=== PATIENT | female | born 1985 | race Caucasian/White ===

== ENCOUNTER 2016-06-15 02:05 | Inpatient (IN) | payer OTHER ==
[2016-06-15] VITALS (16 sets, daily range): BP systolic 109–136; BP diastolic 57–86
[~2016-06-15] VITALS: Ht 152.4 cm; Wt 58.6 kg
[~2016-06-15 02:05] MED LIST: AZELASTINE137 MCG/0.; AZITHROMYCIN250 MG; FLUTICASONE PRO16 GM; PROMETHAZINE HC25 M1 PO; ROBITUSSIN AC,T10 ML PO; ZITHROMAX Z-PA250 MG PO; ZOFRAN4 MG PO
[2016-06-15 03:28] LABS: HEMATOCRIT 33.1 % (36.0-46.0); MCH 31.8 PG (29.0-34.0); MCHC 34.1 G/DL (30.0-36.0); MCV 93.2 FL (83-99); MEAN PLAT.VOLUME 9.2 uM^3 (9.5-12.4); PLATELET COUNT 237 K/uL (156-360); RBC DIS.WIDTH-CV 13.4 % (11.8-14.6); RBC DIS.WIDTH-SD 43.9 % (39-53); RED BLOOD COUNT 3.55 M/uL (3.80-5.20); WHITE BLOOD COUNT 14.2 K/uL (4.1-10.2)
[2016-06-15 03:36] LABS: BASOPHIL COUNT 0.1 K/uL (0-0.1); EOSINOPHIL (%) 0.8 % (0-5); EOSINOPHIL COUNT 0.1 K/uL (0-0.3); IMMATURE GRANULOCYTE (%) 0.3 % (0.0-0.7); IMMATURE GRANULOCYTE COUNT 0.4 K/uL; LYMPHOCYTE COUNT 3.1 K/uL (1.0-2.8); MONOCYTE (%) 8.8 % (3-12); MONOCYTE COUNT 1.3 K/uL (0-0.8); NEUTROPHIL (%) 67.6 % (45-76); NEUTROPHIL COUNT 9.6 K/uL (1.8-6.4)
[2016-06-15] MEDS ORDERED: IRON325 M1 PO (05:14)
[2016-06-16 07:15] VITALS: BP 111/67
[2016-06-16 07:23] LABS: HEMATOCRIT 28.1 % (36.0-46.0); MCHC 33.8 G/DL (30.0-36.0); MCV 94.6 FL (83-99); MEAN PLAT.VOLUME 9.6 uM^3 (9.5-12.4); PLATELET COUNT 188 K/uL (156-360); RBC DIS.WIDTH-CV 13.7 % (11.8-14.6); RBC DIS.WIDTH-SD 47.4 % (39-53); RED BLOOD COUNT 2.97 M/uL (3.80-5.20); WHITE BLOOD COUNT 12.3 K/uL (4.1-10.2)
[2016-06-16 07:48] LABS: EOSINOPHIL (%) 0.6 % (0-5); EOSINOPHIL COUNT 0.1 K/uL (0-0.3); IMMATURE GRANULOCYTE (%) 0.2 % (0.0-0.7); LYMPHOCYTE COUNT 3.4 K/uL (1.0-2.8); MONOCYTE COUNT 0.9 K/uL (0-0.8); NEUTROPHIL (%) 64.2 % (45-76); NEUTROPHIL COUNT 7.9 K/uL (1.8-6.4)
[2016-06-16 15:40] VITALS: BP 119/72
== END 2016-06-16 20:25 | disposition home or self-care (01) | DRG 775 ==
LOC: LDRP-OP → 2WEST 02:06
PROVIDERS: Advanced Practice Midwife
DX: O60.23X0 Term delivery with preterm labor, third trimester, not applicable or unspecified (principal); O99.344 Other mental disorders complicating childbirth; O99.334 Smoking (tobacco) complicating childbirth; F17.210 Nicotine dependence, cigarettes, uncomplicated; O99.02 Anemia complicating childbirth; Z3A.36 36 weeks gestation of pregnancy; Z37.0 Single live birth; F32.9 Major depressive disorder, single episode, unspecified; D64.9 Anemia, unspecified
CPT/HCPCS: 85025; J7120